=== PATIENT | male | born 1970 | race African-American/Black ===

== ENCOUNTER 2017-05-20 11:35 | Inpatient (IN) | payer OTHER ==
[2017-05-20 11:58] VITALS: BMI 26.6
--- NOTE | 2017-05-20 14:22 | HP ---
CIWA Score - CIWA Score Nausea/Vomitin (DIARRHEA) Muscle Tremors: 3 Anxiety: 4-Mod. Anxious/Guarded Agitation: 3 Paroxysmal Sweats: 1-Minimal Palms Moist Orientation: 0-Oriented Tacttile Disturbances: 3-Moderate Itch/Numb/Burn Auditory Disturbances: 0-None Visual Disturbances: 0-None Headache: 0-None Present CIWA-Ar Total Score: 19 Admission ROS BHS - HPI Chief Complaint: DETOX TX FOR ALCOHOL DEPENDENCE Allergies/Adverse Reactions: Allergies Allergy/AdvReac Type Severity Reaction Status Date / Time No Known Allergies Allergy Verified 05/20/17 12:15 History of Present Illness: 46 Y/O AA/MALE WITH A HX OF ALCOHOL AND COCAINE DEPENDENCE SEEKING DETOX TX. PT (+) FOR PCP BUT CLAIMS IT IS NOT A HABIT. Exam Limitations: No Limitations - Ebola screening Have you traveled outside of the country in the last 21 days: No Have you had contact with anyone from an Ebola affected area: No Have you been sick,other than usual withdrawal symptoms: No Do you have a fever: No - Review of Systems Constitutional: Chills, Loss of Appetite, Night Sweats, Changes in sleep, Unintentional Wgt. Loss EENT: reports: Blurred Vision, Dental Problems (MISSING TEETH) Respiratory: reports: No Symptoms reported Cardiac: reports: No Symptoms Reported GI: reports: Diarrhea, Nausea, Poor Appetite, Vomiting : reports: No Symptoms Reported Musculoskeletal: reports: Back Pain, Muscle Pain Integumentary: reports: Lesions (COLD SORE ON MOUTH), Rash Neuro: reports: Seizure (SINCE [age] YEAR OLD) Endocrine: reports: No Symptoms Reported Hematology: reports: Anemia Psychiatric: reports: Orientated x3, Anxious, Depressed Other Systems: Reviewed and Negative Patient History - Patient Medical History Hx Anemia: No Hx Asthma: No Hx Chronic Obstructive Pulmonary Disease (COPD): No Hx Cancer: No Hx Cardiac Disorders: No Hx Congestive Heart Failure: No Hx Hypertension: No Hx Hypercholesterolemia: No Hx Pacemaker: No HX Cerebrovascular Accident: No Hx Seizures: Yes (SEIZURE DISORDER LAST WAS 1 YR AGO) Hx Dementia: No Hx Diabetes: No Hx Gastrointestinal Disorders: No Hx Liver Disease: No Hx Genitourinary Disorders: No Hx Sexually Transmitted Disorders: No Hx Renal Disease (ESRD): No Hx Thyroid Disease: No Hx Human Immunodeficiency Virus (HIV): No (NEGATIVE HX) Hx Hepatitis C: No Hx Depression: Yes (ON MED) Hx Suicide Attempt: No (DENIES) Hx Bipolar Disorder: No Hx Schizophrenia: No - Patient Surgical History Past Surgical History: No Hx Neurologic Surgery: No Hx Cataract Extraction: No Hx Cardiac Surgery: No Hx Lung Surgery: No Hx Breast Surgery: No Hx Breast Biopsy: No Hx Abdominal Surgery: No Hx Appendectomy: No Hx Cholecystectomy: No Hx Genitourinary Surgery: No Hx Orthopedic Surgery: No Anesthesia Reaction: No - PPD History Previous Implant?: Yes Documented Results: Negative w/o proof Implanted On Prior [facility] Admission?: Yes Date: 10/19/15 PPD to be Administered?: Yes - Reproductive History Patient is a Female of Child Bearing Age (11 -55 yrs old): No (MALE) Patient : (N/A) - Smoking Cessation Smoking history: Current every day smoker Have you smoked in the past 12 months: Yes Aproximately how many cigarettes per day: 20 Hx Chewing Tobacco Use: No Initiated information on smoking cessation: Yes 'Breaking Loose' booklet given: 05/20/17 - Substance & Tx. History Hx Alcohol Use: Yes Hx Substance Use: Yes (CRACK/PCP/PERCOCETS) Substance Use Type: Alcohol, Cocaine, Opiates Hx Substance Use Treatment: Yes (LAST TX AT [facility]-DETOX) - Substances Abused Alcohol Route: Oral Frequency: Daily Amount used: 2 24 OZ BEERS/ 1 PINT LIQUOR Age of first use: 19 Date of Last Use: 05/19/17 Crack Route: Smoking Frequency: Daily Amount used: $40 Age of first use: 37 Date of Last Use: 05/16/17 PCP Route: Smoking Frequency: 1-3 times last 30 days Amount used: 1 BAG Age of first use: 39 Date of Last Use: 05/16/17 PERCOCET Route: Oral Frequency: 3-6 times per week Amount used: 20MG Age of first use: 45 Date of Last Use: 05/19/17 Family Disease History - Family Disease History Family Disease History: Diabetes: Father Admission Physical Exam S - Vital Signs Vital Signs: Vital Signs - 24 hr 05/20/17 11:52 Temperature 98.1 F Pulse Rate 78 Respiratory 20 Rate Blood Pressure 129/84 - Physical General Appearance: Yes: Moderate Distress, Irritable, Anxious HEENTM: Yes: EOMI, Normocephalic, ALKA Respiratory: Yes: Chest Non-Tender, Lungs Clear, Normal Breath Sounds, No Respiratory Distress Breast: Yes: Breast Exam Deferred Cardiology: Yes: Regular Rhythm, Regular Rate, S1, S2 Abdominal: Yes: Normal Bowel Sounds, Non Tender, Soft Genitourinary: Yes: Other (N/C) Back: Yes: Within Normal Limits Musculoskeletal: Yes: full range of Motion, Gait Steady Extremities: Yes: Normal Range of Motion, Non-Tender Neurological: Yes: transport aircrewman II-XII NML intact, Fully Oriented, Alert, Motor Strength 5/5 Integumentary: Yes: Dry, Warm, Rash (COLD SORE ON LIPS X 3 DAYS) Lymphatic: Yes: Within Normal Limits - Diagnostic (1) Alcohol dependence with uncomplicated withdrawal Current Visit: Yes Status: Acute (2) Cocaine dependence Current Visit: Yes Status: Acute Qualifiers: Substance use status: uncomplicated Qualified Code(s): F14.20 - Cocaine dependence, uncomplicated (3) Epilepsy Current Visit: Yes Status: Chronic Qualifiers: Epilepsy type: unspecified Intractability: not intractable Status epilepticus: without status epilepticus Qualified Code(s): G40.909 - Epilepsy, unspecified, not intractable, without status epilepticus (4) Nicotine dependence Current Visit: Yes Status: Acute Qualifiers: Nicotine product type: cigarettes Substance use status: uncomplicated Qualified Code(s): F17.210 - Nicotine dependence, cigarettes, uncomplicated (5) History of anemia Current Visit: Yes Status: Suspected (6) Cold sore Current Visit: Yes Status: Acute Comment: ON LIPS Cleared for Admission [facility] - Detox or Rehab [facility] Level of Care: Medically Managed Detox Regimen/Protocol: Librium [facility] Breath Alcohol Content Breath Alcohol Content: 0 Urine Drug Screen - Results Drug Screen Negative: No Urine Drug Screen Results: BOOM-Cocaine, PCP-Phencyclidine
[2017-05-20] MEDS ORDERED: diphenhydrAMINE HCL 50 MG CAPSULE PO PRN (14:38)
[2017-05-20] MEDS ORDERED: LOPERAMIDE HCL 2 MG CAPSULE PO PRN (14:38)
[2017-05-20] MEDS ORDERED: MAGNESIUM CITRATE 300 ML BOTTLE PO PRN (14:38)
[2017-05-20] MEDS ORDERED: P-EPHED 60MG/TRIPROLIDI 2.5MG TABLET PO PRN (14:38)
[2017-05-20] MEDS ORDERED: guaiFENesin/D-METHORPHAN HB 10 ML UNIT-DOSE CUPS PO PRN (14:38)
[2017-05-20] MEDS ORDERED: MAG HYDROX/AL HYDROX/SIMETH 30 ML UNIT-DOSE CUP PO PRN (14:38)
[2017-05-20] MEDS ORDERED: NICOTINE POLACRILEX 4 MG GUM BC PRN (14:38)
[2017-05-20] MEDS ORDERED: IBUPROFEN 400 MG TABLET (FP) PO PRN (14:38)
[2017-05-20] MEDS ORDERED: chlordiazePOXIDE HCL 25 MG CAPSULE PO PRN (14:38)
[2017-05-20] MEDS ORDERED: ACETAMINOPHEN 325 MG TABLET (FP) PO PRN (14:38)
[2017-05-20] MEDS ORDERED: hydrOXYzine PAMOATE 50 MG CAPSULE (FP) PO PRN (14:38)
[2017-05-20] MEDS ORDERED: MAGNESIUM HYDROX 2400MG/30ML ORAL SUSPENSION 30 ML CUP PO PRN (14:38)
[2017-05-20] MEDS ORDERED: MENTHOL/PHENOL 1 EACH UD MM PRN (14:38)
[2017-05-20] MEDS ORDERED: chlordiazePOXIDE HCL 25 MG CAPSULE PO ONE (15:15)
[2017-05-20 17:35] LABS: URINE APPEARANCE CLEAR; URINE BILIRUBIN NEGATIVE (NEGATIVE); URINE BLOOD NEGATIVE (NEGATIVE); URINE COLOR YELLOW; URINE GLUCOSE (UA) NEGATIVE (NEGATIVE); URINE KETONE NEGATIVE (NEGATIVE); URINE LEUK ESTERASE NEGATIVE (NEGATIVE); URINE NITRITE NEGATIVE (NEGATIVE); URINE PROTEIN NEGATIVE (NEGATIVE); URINE UROBILINOGEN NEGATIVE mg/dL (0.2-1.0)
--- NOTE | 2017-05-20 17:43 | CONSULT ---
[facility] Psychiatric Consult - Data Date of interview: 05/20/17 Admission source: [facility] Identifying data: Readmission to [facility] for this 46 y/o AA male seeking detox treatment on for alcohol,cocaine,opiates and phencyclidine dependence.Patient is ,a father of three,homeless,unemployed and reportedly deprived of any source of income. Substance Abuse History: Confirmed by patient in this interview. Smoking Cessation. Smoking history: Current every day smoker. Have you smoked in the past 12 months: Yes. Aproximately how many cigarettes per day: 20. Hx Chewing Tobacco Use: No. Initiated information on smoking cessation: Yes. 'Breaking Loose' booklet given: 05/20/17. - Substance & Tx. History. Hx Alcohol Use: Yes. Hx Substance Use: Yes (CRACK/PCP/PERCOCETS). Substance Use Type: Alcohol , Cocaine, Opiates. Hx Substance Use Treatment: Yes (LAST TX AT [facility]-DETOX). - Substances Abused. Alcohol. Route: Oral. Frequency: Daily. Amount used : 2 24 OZ BEERS/ 1 PINT LIQUOR. Age of first use: 19. Date of Last Use: . Crack. Route: Smoking. Frequency: Daily. Amount used: $40. Age of first use: 37. Date of Last Use: 05/16/17. PCP. Route: Smoking. Frequency : 1-3 times last 30 days. Amount used: 1 BAG. Age of first use: 39. Date of Last Use: 05/16/17. PERCOCET. Route: Oral. Frequency: 3-6 times per week. Amount used: 20MG. Age of first use: 45. Date of Last Use: 05/19/17 Medical History: Seizure disorder (on valproate). Psychiatric History: Patient denies history of psychiatric hospitalizations.Has been diagnosed in the past with MDD and treated with celexa 10 mg/day.Non compliant with medications.No report of recent OPD care.Lost to follow up since his discharge from [facility] months earlier.Mr Nye is now willing to restart treatment with celexa and he is contemplating continuity of care at the [facility] (self-report).No history of suicide attempts. Physical/Sexual Abuse/Trauma History: Patient denies history of abuse. Additional Comment: Urine Drug Screen Results: BOOM-Cocaine, PCP- Phencyclidine.Noted. Mental Status Exam - Mental Status Exam Alert and Oriented to: Time, Place, Person Cognitive Function: Good Patient Appearance: Well Groomed Mood: Nervous, Anxious Affect: Mood Congruent Patient Behavior: Fatigued, Appropriate, Cooperative Speech Pattern: Clear Voice Loudness: Normal Thought Process: Intact, Goal Oriented Thought Disorder: Not Present Hallucinations: Denies Suicidal Ideation: Denies Homicidal Ideation: Denies Insight/Judgement: Poor Sleep: Poorly, Difficulty falling asleep Appetite: Good Muscle strength/Tone: Normal Gait/Station: Normal Psychiatric Findings - Problem List ([place] 1, 2,3) (1) Alcohol dependence with uncomplicated withdrawal Current Visit: Yes Status: Acute (2) Cocaine dependence Current Visit: Yes Status: Acute Qualifiers: Substance use status: uncomplicated Qualified Code(s): F14.20 - Cocaine dependence, uncomplicated (3) Nicotine dependence Current Visit: Yes Status: Acute Qualifiers: Nicotine product type: cigarettes Substance use status: uncomplicated Qualified Code(s): F17.210 - Nicotine dependence, cigarettes, uncomplicated (4) PCP dependence Current Visit: Yes Status: Acute (5) Drug-induced mood disorder Current Visit: Yes Status: Acute (6) Epilepsy Current Visit: Yes Status: Chronic Qualifiers: Epilepsy type: unspecified Intractability: not intractable Status epilepticus: without status epilepticus Qualified Code(s): G40.909 - Epilepsy, unspecified, not intractable, without status epilepticus (7) History of anemia Current Visit: Yes Status: Suspected (8) Insomnia Current Visit: Yes Status: Acute - Initial Treatment Plan Initial Treatment Plan: Psychoeducation.Detoxification in progress.Medications : celexa 10 mg po daily + ambien 10 mg po hs prn.Side effects/benefits of each drug are discussed with the patient.Mr Nye agrees to follow this careplan.Observation.
[2017-05-20] MEDS: chlordiazePOXIDE HCL 25 MG CAPSULE PO SCH ×2 (18:15→22:18)
[2017-05-20] MEDS ORDERED: ACYCLOVIR 400 MG TABLET PO SCH (22:00)
[2017-05-20] MEDS: THIAMINE HCL 100 MG TABLET (FP) PO SCH (22:19)
[2017-05-20] MEDS: ZOLPIDEM TARTRATE 5 MG TABLET PO PRN (22:19)
[2017-05-20] MEDS: BACITRACIN 0.9 GM PACKET TP SCH (22:23)
[2017-05-21] MEDS: chlordiazePOXIDE HCL 25 MG CAPSULE PO SCH ×4 (05:47→22:30)
[2017-05-21 06:08] LABS: HIV 1 & 2 AB NEGATIVE; HIV 1 AGp24 NEGATIVE
[2017-05-21] MEDS: ACYCLOVIR 800 MG TABLET PO SCH ×4 (06:54→22:30)
[2017-05-21 09:53] LABS: MCH 21.9 pg (25.7-33.7); MCHC 31.2 g/dl (32.0-35.9); MEAN CELL VOLUME 70.1 fl (80-96); MEAN PLT VOLUME 8.9 fl (7.5-11.1); PLATELET COUNT 282 K/MM3 (134-434); RDW 18.7 % (11.9-15.9)
[2017-05-21] MEDS: PRENATAL VITAMINS W/ FOLIC ACID TABLET (FP) PO SCH (10:28)
[2017-05-21] MEDS: CITALOPRAM HYDROBROMIDE 10 MG TABLET (FP) PO SCH (10:28)
[2017-05-21] MEDS: BACITRACIN 0.9 GM PACKET TP SCH ×2 (10:28→22:31)
[2017-05-21] MEDS: DIVALPROEX NA *ER* EXTEND REL 250 MG TABLET.SA PO SCH ×2 (10:28→22:30)
[2017-05-21] MEDS: NICOTINE 21 MG/24 HOURS TOPICAL PATCH TD SCH (10:30)
--- NOTE | 2017-05-21 10:46 | PN ---
[facility] CIWA - CIWA Score Nausea/Vomitin-No Nausea/No Vomiting Muscle Tremors: 4-Moderate,w/Arms Extend Anxiety: 4-Mod. Anxious/Guarded Agitation: 4-Moderately Restless Paroxysmal Sweats: 1-Minimal Palms Moist Orientation: 0-Oriented Tacttile Disturbances: 3-Moderate Itch/Numb/Burn Auditory Disturbances: 0-None Visual Disturbances: 0-None Headache: 0-None Present CIWA-Ar Total Score: 16 BHS Progress Note (SOAP) Subjective: ANXIETY,SWEATS,FATIGUE, INTERMITTENT SLEEP. Objective: 05/21/17 10:45 Vital Signs Temperature 98.0 F 05/21/17 09:38 Pulse Rate 95 H 05/21/17 09:38 Respiratory Rate 18 05/21/17 09:38 Blood Pressure 123/80 05/21/17 09:38 O2 Sat by Pulse Oximetry (%) Laboratory Last Values WBC 8.0 K/mm3 (4.0-10.0) 05/21/17 06:00 RBC 5.43 M/mm3 (4.00-5.60) 05/21/17 06:00 Hgb 11.9 GM/dL (11.7-16.9) 05/21/17 06:00 Hct 38.1 % (35.4-49) 05/21/17 06:00 MCV 70.1 fl (80-96) L 05/21/17 06:00 MCH 21.9 pg (25.7-33.7) L 05/21/17 06:00 MCHC 31.2 g/dl (32.0-35.9) L 05/21/17 06:00 RDW 18.7 % (11.9-15.9) H 05/21/17 06:00 Plt Count 282 K/MM3 (134-434) 05/21/17 06:00 MPV 8.9 fl (7.5-11.1) D 05/21/17 06:00 Urine Color Yellow 05/20/17 15:00 Urine Appearance Clear 05/20/17 15:00 Urine pH 5.0 (5.0-8.0) 05/20/17 15:00 Ur Specific [place] 1.025 (1.005-1.025) 05/20/17 15:00 Urine Protein Negative (NEGATIVE) 05/20/17 15:00 Urine Glucose (UA) Negative (NEGATIVE) 05/20/17 15:00 Urine Ketones Negative (NEGATIVE) 05/20/17 15:00 Urine Blood Negative (NEGATIVE) 05/20/17 15:00 Urine Nitrite Negative (NEGATIVE) 05/20/17 15:00 Urine Bilirubin Negative (NEGATIVE) 05/20/17 15:00 Urine Urobilinogen Negative mg/dL (0.2-1.0) 05/20/17 15:00 Ur Leukocyte Esterase Negative (NEGATIVE) 05/20/17 15:00 HIV 1&2 Antibody Screen Negative 05/20/17 12:00 HIV P24 Antigen Negative 05/20/17 12:00 OTHER LABS PENDING Assessment: 05/21/17 10:45 WITHDRAWAL SX Plan: CONTINUE DETOX
[2017-05-21 10:56] LABS: ALBUMIN 4.1 g/dl (3.4-5.0); ALK PHOS 74 U/L (45-117); ANION GAP 11 (8-16); BILIRUBIN,TOTAL 0.7 mg/dL (0.2-1.0); CALCIUM 9.3 mg/dL (8.5-10.1); CO2 24 mmol/L (21-32); CREATININE 1.1 mg/dL (0.7-1.3); GLUCOSE,RANDOM 97 mg/dL (74-106); SGOT/AST 16 U/L (15-37); SGPT/ALT 31 U/L (12-78); TOT PROT 7.5 g/dl (6.4-8.2)
--- NOTE | 2017-05-21 12:32 | EKG ---
Test Reason : Blood Pressure : / mmHG Vent. Rate : 066 BPM Atrial Rate : 066 BPM P-R Int : 132 ms QRS Dur : 086 ms QT Int : 414 ms P-R-T Axes : 051 035 027 degrees QTc Int : 434 ms NORMAL SINUS RHYTHM VOLTAGE CRITERIA FOR LEFT VENTRICULAR HYPERTROPHY ABNORMAL ECG NO PREVIOUS ECGS AVAILABLE Confirmed by PRISCILLA DIA MD ([id number]) on 05/21/2017 12:31:27 PM Referred By: Confirmed By:PRISCILLA DIA MD
[2017-05-21] MEDS: THIAMINE HCL 100 MG TABLET (FP) PO SCH (22:30)
[2017-05-21] MEDS: ZOLPIDEM TARTRATE 5 MG TABLET PO PRN (22:30)
[2017-05-22] MEDS: chlordiazePOXIDE HCL 25 MG CAPSULE PO SCH ×2 (05:44→10:34)
[2017-05-22] MEDS: ACYCLOVIR 800 MG TABLET PO SCH (09:00)
[2017-05-22] MEDS ORDERED: ACYCLOVIR 400 MG TABLET PO SCH (09:15)
[2017-05-22] MEDS: NICOTINE 21 MG/24 HOURS TOPICAL PATCH TD SCH (10:34)
[2017-05-22] MEDS: BACITRACIN 0.9 GM PACKET TP SCH ×2 (10:35→22:29)
[2017-05-22] MEDS: CITALOPRAM HYDROBROMIDE 10 MG TABLET (FP) PO SCH (10:35)
[2017-05-22] MEDS: DIVALPROEX NA *ER* EXTEND REL 250 MG TABLET.SA PO SCH ×2 (10:35→22:28)
[2017-05-22] MEDS: PRENATAL VITAMINS W/ FOLIC ACID TABLET (FP) PO SCH (10:35)
--- NOTE | 2017-05-22 11:07 | PN ---
[facility] CIWA - CIWA Score Nausea/Vomitin-No Nausea/No Vomiting Muscle Tremors: 4-Moderate,w/Arms Extend Anxiety: 4-Mod. Anxious/Guarded Agitation: 4-Moderately Restless Paroxysmal Sweats: 1-Minimal Palms Moist Orientation: 0-Oriented Tacttile Disturbances: 3-Moderate Itch/Numb/Burn Auditory Disturbances: 0-None Visual Disturbances: 0-None Headache: 0-None Present CIWA-Ar Total Score: 16 S Progress Note (SOAP) Subjective: ANXIETY,SWEATS,PAIN TO LEFT HIP. Objective: 05/22/17 11:06 Vital Signs Temperature 97.3 F L 05/22/17 10:21 Pulse Rate 85 05/22/17 10:21 Respiratory Rate 20 05/22/17 10:21 Blood Pressure 111/77 05/22/17 10:21 O2 Sat by Pulse Oximetry (%) Laboratory Last Values WBC 8.0 K/mm3 (4.0-10.0) 05/21/17 06:00 RBC 5.43 M/mm3 (4.00-5.60) 05/21/17 06:00 Hgb 11.9 GM/dL (11.7-16.9) 05/21/17 06:00 Hct 38.1 % (35.4-49) 05/21/17 06:00 MCV 70.1 fl (80-96) L 05/21/17 06:00 MCH 21.9 pg (25.7-33.7) L 05/21/17 06:00 MCHC 31.2 g/dl (32.0-35.9) L 05/21/17 06:00 RDW 18.7 % (11.9-15.9) H 05/21/17 06:00 Plt Count 282 K/MM3 (134-434) 05/21/17 06:00 MPV 8.9 fl (7.5-11.1) D 05/21/17 06:00 Sodium 142 mmol/L (136-145) 05/21/17 06:00 Potassium 3.9 mmol/L (3.5-5.1) 05/21/17 06:00 Chloride 107 mmol/L (98-107) 05/21/17 06:00 Carbon Dioxide 24 mmol/L (21-32) 05/21/17 06:00 Anion Gap 11 (8-16) 05/21/17 06:00 BUN 12 mg/dL (7-18) 05/21/17 06:00 Creatinine 1.1 mg/dL (0.7-1.3) 05/21/17 06:00 Creat Clearance w eGFR > 60 (>60) 05/21/17 06:00 Random Glucose 97 mg/dL (74-106) 05/21/17 06:00 Calcium 9.3 mg/dL (8.5-10.1) 05/21/17 06:00 Total Bilirubin 0.7 mg/dL (0.2-1.0) D 05/21/17 06:00 AST 16 U/L (15-37) 05/21/17 06:00 ALT 31 U/L (12-78) 05/21/17 06:00 Alkaline Phosphatase 74 U/L (45-117) 05/21/17 06:00 Total Protein 7.5 g/dl (6.4-8.2) 05/21/17 06:00 Albumin 4.1 g/dl (3.4-5.0) 05/21/17 06:00 Urine Color Yellow 05/20/17 15:00 Urine Appearance Clear 05/20/17 15:00 Urine pH 5.0 (5.0-8.0) 05/20/17 15:00 Ur Specific [place] 1.025 (1.005-1.025) 05/20/17 15:00 Urine Protein Negative (NEGATIVE) 05/20/17 15:00 Urine Glucose (UA) Negative (NEGATIVE) 05/20/17 15:00 Urine Ketones Negative (NEGATIVE) 05/20/17 15:00 Urine Blood Negative (NEGATIVE) 05/20/17 15:00 Urine Nitrite Negative (NEGATIVE) 05/20/17 15:00 Urine Bilirubin Negative (NEGATIVE) 05/20/17 15:00 Urine Urobilinogen Negative mg/dL (0.2-1.0) 05/20/17 15:00 Ur Leukocyte Esterase Negative (NEGATIVE) 05/20/17 15:00 Valproic Acid 6.682 ug/ml (50-100) L 05/21/17 10:50 RPR Titer Nonreactive (NONREACTIVE) 05/21/17 06:00 HIV 1&2 Antibody Screen Negative 05/20/17 12:00 HIV P24 Antigen Negative 05/20/17 12:00 Assessment: 05/22/17 11:06 WITHDRAWAL SX Plan: CONTINUE DETOX
[2017-05-22] MEDS: chlordiazePOXIDE 5 MG CAPSULE PO SCH ×2 (17:16→22:29)
[2017-05-22] MEDS: THIAMINE HCL 100 MG TABLET (FP) PO SCH (22:28)
[2017-05-22] MEDS: ZOLPIDEM TARTRATE 5 MG TABLET PO PRN (22:28)
[2017-05-23] MEDS: chlordiazePOXIDE 5 MG CAPSULE PO SCH ×2 (05:48→10:35)
[2017-05-23] MEDS: DIVALPROEX NA *ER* EXTEND REL 250 MG TABLET.SA PO SCH (10:32)
[2017-05-23] MEDS: BACITRACIN 0.9 GM PACKET TP SCH (10:32)
[2017-05-23] MEDS: CITALOPRAM HYDROBROMIDE 10 MG TABLET (FP) PO SCH (10:32)
[2017-05-23] MEDS: PRENATAL VITAMINS W/ FOLIC ACID TABLET (FP) PO SCH (10:32)
[2017-05-23] MEDS: NICOTINE 21 MG/24 HOURS TOPICAL PATCH TD SCH (10:34)
[2017-05-23 13:46] VITALS: BP 121/80; PULSE 86; TEMP 98.3
[2017-05-23] MEDS ORDERED: chlordiazePOXIDE HCL 10 MG CAPSULE PO SCH (17:00)
== END 2017-05-23 13:00 | disposition home or self-care (01) | DRG 774 ==
LOC: YASAS 11:35 → Y3N 12:59
PROVIDERS: ADMIT Internal Medicine Addiction Medicine; ATTEND Internal Medicine Addiction Medicine
PROC: HZ2ZZZZ Detoxification Services for Substance Abuse Treatment (ICD-10-PCS; principal; 2017-05-20)
DX: F10.230 Alcohol dependence with withdrawal, uncomplicated (principal); F14.20 Cocaine dependence, uncomplicated; F16.20 Hallucinogen dependence, uncomplicated; F17.210 Nicotine dependence, cigarettes, uncomplicated; F19.24 Other psychoactive substance dependence with psychoactive substance-induced mood disorder; G40.909 Epilepsy, unspecified, not intractable, without status epilepticus; G47.00 Insomnia, unspecified; B00.1 Herpesviral vesicular dermatitis; Z86.2 Personal history of diseases of the blood and blood-forming organs and certain disorders involving the immune mechanism; Z59.0 Homelessness
CPT/HCPCS: 36415; 80053; 80164; 81003; 85027; 86593; 87389; 93005; 93010